=== PATIENT | male | born 1960 | race Caucasian/White ===

== ENCOUNTER 2019-02-18 23:26 | Emergency (ER) | payer OTHER, SELFPAY ==
[2019-02-18 23:27] VITALS: BP 174/84; PULSE 77; RESP 15; TEMP 36.4; O2SAT 99; BMI 24.3
--- NOTE | 2019-02-18 23:55 | RAD_ITS ---
HISTORY: PAIN IN RIGHT HIP/ FALL EXAMINATION/TECHNIQUE: XR AP pelvis and right hip 3 views COMPARISON: None FINDINGS: Mildly comminuted intertrochanteric fracture of the proximal right femur. Mild cephalad displacement of the major distal fracture fragment. No dislocation. Remote subtrochanteric fracture of the left hip with orthopedic fixation utilizing 2 compression screws of the left hip and a long intramedullary jerry. The distal jerry is not visualized. No acute fracture of the left hip is seen. The SI joints are not widened. Pubic rami appear intact. Bilateral surgical clips compatible with previous vastectomy. RAD/HIP, UNI W/ Pelvis 2-3 Views IMPRESSION: 1. Mildly comminuted and mildly displaced intertrochanteric fracture of the right hip. 2. Left hip remote fracture with orthopedic fixation. No complication seen. at 0054 Reported and signed by: Олег Purvis MD Electronically Signed: Олег Purvis, at 0:53 EDT Tel , Service support ,
--- NOTE | 2019-02-18 23:56 | ED.VIS.GEN ---
History of Present Illness Chief Complaint: Fall Narrative: Patient is a 58-year-old male who presents after a fall. He slipped on some hydraulic or transmission fluid while walking into work. His legs went to the left knee fell onto his right hip. He denies any head injury loss of consciousness injury to the chest abdomen or back. No injury to any other extremities. He did have a recent left hip fracture and postoperative DVT so is on Eliquis. Past Medical History - Allergies and Home Meds Allergies/Adverse Reactions: Allergies No Known Allergies Allergy (Verified 02/18/19 23:27) Primary Care Physician: Sophia Nogueira DO [Primary Care Provider] - Past Medical History: - - Hypertension, DVT, history of left hip fracture Smoking Status: Current every day smoker Review of Systems All systems negative except as indicated General: Denies: Fever Cardiovascular: Denies: Chest pain Respiratory: Denies: Dyspnea Gastrointestinal: Denies: Nausea, Vomiting Musculoskeletal: Reports: - - Right hip pain Physical Exam Vital Signs/Narrative: Vital Signs Temp Pulse Resp BP Pulse Ox 02/18/19 23:27 97.6 F L 77 15 174/84 H 99 Inital Vital Signs reviewed: Yes General: Well nourished Head: Normocephalic Eyes: EOMI ENT: Moist mucous membranes Neck: Supple Cardiovascular: Regular rate, Regular rhythm Respiratory: No distress, CTA bilaterally Abdomen: Soft Extremities: - - Painful limited range of motion of the right hip, no extremity shortening, easily palpable dorsalis pedis pulse with brisk capillary refill normal sensation no tenderness at the knee ankle or foot normal motor function of the foot and ankle active full range of motion without pain of the left lower extremity and bilateral upper extremities Skin: Normal color Neurological: Alert Psychological: Normal affect Diagnostic/Tx/Re-eval Impressions Hip/Pelvis X-Ray 02/18/19 23:55 IMPRESSION: 1. Mildly comminuted and mildly displaced intertrochanteric fracture of the right hip. 2. Left hip remote fracture with orthopedic fixation. No complication seen. at 0054 Reported and signed by: Олег Purvis MD Electronically Signed: Олег Purvis, at 0:53 EDT Tel , Service support , 02/18/19 23:55 Xray hip [HIP, UNI W/ Pelvis 2-3 Views] [RAD] Stat 02/19/19 00:40 CXR [Chest 1 View (Portable)] [RAD] Stat Laboratory Results 02/19/19 02/19/19 02/19/19 00:35 00:35 00:35 WBC 16.5 H RBC 4.29 L Hgb 13.2 Hct 40.1 MCV 93.5 MCH 30.8 MCHC 32.9 RDW Std Deviation 43.9 RDW Coeff of Thomas 12.7 Plt Count 281 MPV 9.1 Immature Gran % (Auto) 0.900 Neut % (Auto) 81.2 H Lymph % (Auto) 10.9 L Henry % (Auto) 6.6 Eos % (Auto) 0.1 Baso % (Auto) 0.3 Absolute Neuts (auto) 13.4 H Absolute Lymphs (auto) 1.79 Nucleated RBC % 0 PT 15.7 H INR 1.3 Sodium 133 L Potassium 4.2 Chloride 102 Carbon Dioxide 27.0 Anion Gap 4 L BUN 18 Creatinine 1.19 Estim Creat Clear Calc 73.82 Est GFR (MDRD) Af Amer 81 Est GFR (MDRD) Non-Af 67 BUN/Creatinine Ratio 15.1 Glucose 116 H Calcium 9.1 - Medical Decision Making Right hip x-ray shows an intertrochanteric hip fracture. Labs as above notable for white count of 16.5. Chest x-ray on my review shows no acute process although radiology read is pending. Patient had an IV established and was given morphine and Zofran. Patient recently had a left hip ORIF at [facility] by Dr. Cleaning so requested transfer back to that facility. I spoke directly to Dr. Cleaning who accepted the patient for transfer. ED Disposition - Plan for ED Patient: Disposition: [facility] Diagnosis: Closed right hip fracture Referrals: Sophia Nogueira DO [Primary Care Provider] -
--- NOTE | 2019-02-19 00:24 | EKG12_ITS ---
Test Reason : Blood Pressure : / mmHG Vent. Rate : 054 BPM Atrial Rate : 054 BPM P-R Int : 146 ms QRS Dur : 076 ms QT Int : 400 ms P-R-T Axes : 040 040 049 degrees QTc Int : [address] elevation, consider early repolarization Borderline ECG Confirmed by KAYLIN VALLEJO ([id number]), manager editorial ALY RIVERA ([id number]) on 02/22/2019 12:18:47 PM Referred By: NORA Confirmed By:KAYLIN VALLEJO
[2019-02-19] MEDS: Morphine 4 MG/ML Syringe IV (00:35)
[2019-02-19] MEDS: Ondansetron 4 MG/2 ML Vial IV (00:36)
--- NOTE | 2019-02-19 00:37 | ED.RN ---
[facility] DECLINED TRANSFER D/T HIP FRACTURE BEING AN EXCLUSION FOR TRANSFER
--- NOTE | 2019-02-19 00:40 | RAD_ITS ---
HISTORY: COUGH right hip fracture EXAMINATION/TECHNIQUE: XR Chest 1 View: COMPARISON: None FINDINGS: Rotation of the patient to the right including head and neck rotation to the right. Asymmetrical opacity at the right paratracheal region, which may reflect the sternal manubrium and brachycephalic soft tissues although note that focal lymphadenopathy, mass, or infiltrate is not currently excluded. Left basilar mild linear scarring or atelectasis. Normal heart size. No vascular congestion or pleural effusion. No pneumothorax. RAD/Chest 1 View (Portable) IMPRESSION: 1. Patient rotation to the right with right paratracheal focal asymmetry. Please see above comment. 2. Further evaluation could be obtained with repeat AP chest exam or CT chest. 3. Left basilar minor scarring or atelectasis. No CHF. at 0131 Reported and signed by: Олег Purvis MD Electronically Signed: Олег Purvis, at 1:30 EDT Tel , Service support ,
[2019-02-19 00:41] LABS: Absolute Lymphocyte Count 1.79 X10^3/uL (0.83-4.51); Absolute Neutrophil Count 13.4 X10^3/uL (2.0-7.7); Basophil# 0.05 X10^3/uL; Basophil% 0.3 % (0-1); Eosinophil# 0.01 X10^3/uL; Eosinophils% 0.1 % (0-5); Hematocrit 40.1 % (40-54); Hemoglobin 13.2 g/dL (13.0-16.5); Lymphocyte # 1.79 X10^3/ul (4.0); Lymphocyte % 10.9 % (19-41); Mean Corp Hgb Conc 32.9 g/dL (32-36); Mean Corpuscular Hgb 30.8 pg (27.0-32.0); Mean Corpuscular Volume 93.5 fL (80-94); Mean Platelet Vol. 9.1 fl (6.2-12.0); Monocyte# 1.09 X10^3/uL; Monocyte% 6.6 % (0-10); NRBC Flagged by Analyzer 0 % (0-5); Neutrophil % 81.2 % (47-70); Platelet Count 281 K/mm3 (150-450); RBC Distribution Width CV 12.7 % (11.6-14.6); RBC Distribution Width SD 43.9 fl (35.1-43.9); Red Blood Count 4.29 M/mm3 (4.6-6.2); White Blood Count 16.5 K/mm3 (4.4-11.0)
--- NOTE | 2019-02-19 00:42 | ED.RN ---
DR JAMAL KLEIN PAGED FOR DR KUMAR
[2019-02-19 00:55] LABS: International Normalized Ratio 1.3; Prothrombin Time (Protime)PT. 15.7 SECONDS (11.7-14.9)
[2019-02-19 00:59] LABS: Anion Gap 4 (5-15); BUN 18 mg/dL (7-18); BUN/Creat Ratio 15.1 RATIO (10-20); Calcium,Total 9.1 mg/dL (8.5-10.1); Chloride 102 mmol/L (98-107); Creatinine, Serum 1.19 mg/dL (0.70-1.30); EST Glomerular Filtration Rate 67 mL/min (>60); Est Glom Filt Rate - Afr Amer 81 mL/min (>60); Estimated Creatinine Clearance 73.82 ml/min; Glucose 116 mg/dL (74-106); Potassium 4.2 mmol/L (3.5-5.1); Sodium Level 133 mmol/L (136-145)
--- NOTE | 2019-02-19 01:17 | ED.RN ---
NO OLD EKGS
== END 2019-02-19 01:34 | disposition short-term general hospital (02) ==
PROVIDERS: Emergency Provider Emergency Medicine; Family Provider Internal Medicine; PCP Internal Medicine
DX: S72.141A Displaced intertrochanteric fracture of right femur, initial encounter for closed fracture (principal); W01.0XXA Fall on same level from slipping, tripping and stumbling without subsequent striking against object, initial encounter; Y93.9 Activity, unspecified; Y99.0 Civilian activity done for income or pay; I10 Essential (primary) hypertension; F17.200 Nicotine dependence, unspecified, uncomplicated; Z86.718 Personal history of other venous thrombosis and embolism; Z79.01 Long term (current) use of anticoagulants
CPT/HCPCS: 71045; 73502; 80048; 85025; 85610; 93005; 96374; 96375; 99285; A4216; J2405